=== PATIENT | male | born 1955 | race Hispanic/Latino ===

== ENCOUNTER 2018-02-20 01:32 | Emergency (ER) | payer BC ==
[~2018-02-20] VITALS: Ht 180.3 cm; Wt 104.3 kg
[2018-02-20] MEDS ORDERED: SODIUM CHLORIDE 0.9% 1000ML 1,000 ML IV STA (02:53)
[2018-02-20] MEDS ORDERED: PANTOPRAZOLE 40 MG 10ML VIAL IV STA (02:53)
[2018-02-20] MEDS ORDERED: MORPHINE SULFATE 2 MG/ML SYR IV STA (02:53)
[2018-02-20] MEDS ORDERED: ONDANSETRON HCL INJ 2 MG/ML VIAL IV STA (02:53)
[2018-02-20 03:04] LABS: BASOPHILS # (AUTO) 0.1 (0.0-0.1); BASOPHILS % 0.6 % (0.0-1.0); EOSINOPHILS # (AUTO) 0.2 (0.0-0.4); EOSINOPHILS % 2.6 % (0.0-6.0); HEMATOCRIT 47.9 % (38.2-49.6); HEMOGLOBIN 16.2 g/dL (14.0-18.0); LYMPHOCYTES # (AUTO) 3.6 (1.0-3.2); MEAN CORPUSCULAR HEMOGLOBIN 31.5 pg (28-32); MEAN CORPUSCULAR HGB CONC 33.8 g/dL (31-35); MONOCYTES # (AUTO) 0.4 (0.2-0.8); MONOCYTES % 4.7 % (4.4-11.3); NEUTROPHILS # (AUTO) 5.1 (2.1-6.9); NEUTROPHILS % 53.8 % (38.7-80.0); PLATELET COUNT 324 x10e3/uL (140-360); RED BLOOD COUNT 5.15 x10e6/uL (4.3-5.7); RED CELL DISTRIBUTION WIDTH 12.7 % (11.7-14.4)
[2018-02-20 03:08] LABS: CLARITY,URINE CLEAR (CLEAR); COLOR,URINE YELLOW (YELLOW); INR 0.99; LEUKOCYTE ESTERASE ,URINE NEGATIVE (NEGATIVE); NITRITE,URINE NEGATIVE (NEGATIVE); PROTHROMBIN TIME 12.3 seconds (11.9-14.5)
[2018-02-20 03:09] LABS: BILIRUBIN,URINE NEGATIVE (NEGATIVE); KETONES,URINE NEGATIVE (NEGATIVE); PARTIAL THROMBOPLASTIN TIME 32.2 seconds (23.8-35.5); PROTEIN,URINE DIPSTICK TRACE (NEGATIVE); URINE UROBILINOGEN 0.2 mg/dL (0.2 - 1)
[2018-02-20 03:15] LABS: BACTERIA,URINE RARE /HPF; EPITHELIAL CELLS,URINE RARE /LPF; HYALINE CASTS 0-1 (0-1); MUCUS,URINE MANY (RARE); WBC,URINE (MAN) 0-5 /HPF (0-5)
[2018-02-20 03:17] LABS: ALANINE AMINOTRANSFERASE 58 IU/L (0-55); ALBUMIN/GLOBULIN RATIO 1.1 (0.8-2.0); ALKALINE PHOSPHATASE 114 IU/L (40-150); AMYLASE 45 U/L (25-125); ANION GAP 14.5 mmol/L (8-16); BLOOD UREA NITROGEN 18 mg/dL (7-26); BUN/CREATININE RATIO 19 (6-25); CARBON DIOXIDE 21 mmol/L (22-29); CHLORIDE 106 mmol/L (98-107); CREATINE KINASE 72 IU/L (30-200); CREATININE, SERUM 0.97 mg/dL (0.72-1.25); EST GLOMERULAR FILTRATION RATE > 60 ML/MIN (60-); GLUCOSE 153 mg/dL (74-118); LIPASE 26 U/L (8-78); MAGNESIUM 2.3 MG/DL (1.3-2.1); POTASSIUM 3.5 mmol/L (3.5-5.1); SODIUM 138 mmol/L (136-145)
--- NOTE | 2018-02-20 04:35 | Diagnostic Imaging Report ---
EXAM: CT ABDOMEN/PELVIS W DATE: 02/20/2018 2:53 AM INDICATION: \S\AISHWARYA ABD PAIN, N/V/D \S\ epigastric pain COMPARISON: None TECHNIQUE: The abdomen and pelvis were scanned using a multidetector helical scanner. Coronal and sagittal reformations were obtained. Routine protocol performed. IV Contrast: 100 ml Isovue 370 FINDINGS: LOWER THORAX: No consolidations LIVER/BILIARY: No masses. No ductal dilatation. GALLBLADDER: Unremarkable SPLEEN: Unremarkable PANCREAS: Unremarkable ADRENALS: No nodules KIDNEYS: Symmetric perfusion. No enhancing masses. No hydronephrosis. GI TRACT: No evidence of obstruction. Appendix is not visualized. Diverticulosis with slight thickening of the sigmoid colon which may be related to underdistention or chronic diverticular fibrosis. No acute inflammation. VESSELS: Mild atherosclerotic changes. PERITONEUM/RETROPERITONEUM: No free air or fluid LYMPH NODES: No lymphadenopathy REPRODUCTIVE ORGANS/BLADDER: Unremarkable SOFT TISSUES: Unremarkable BONES: No suspicious bone lesions. IMPRESSION: No acute abnormality. Diverticulosis without evidence of acute diverticulitis. Signed by: Dr Sera Reynolds MD on 02/20/2018 4:32 AM
[2018-02-20] MEDS ORDERED: SODIUM CHLORIDE 0.9% 50ML 50 ML ONE (05:07)
[2018-02-20] MEDS ORDERED: IOPAMIDOL 370 MG/ML 200 ML INFUS..BTL INJ ONE (05:07)
[2018-02-20 05:38] VITALS: BP 130/84
== END 2018-02-20 06:14 | disposition home or self-care (01) ==
LOC: ER 01:32
DX: R11.2 Nausea with vomiting, unspecified (principal); R19.7 Diarrhea, unspecified; R10.13 Epigastric pain
CPT/HCPCS: 36415; 74177; 80053; 81001; 82150; 82550; 82553; 83690; 83735; 84484; 85025; 85610; 85730; 96360; 96374; 96375; 96376; 99284; J2270; J2405; J7030; Q9967

== ENCOUNTER 2018-03-18 16:13 | Emergency (ER) | payer BC ==
[~2018-03-18] VITALS: Ht 180.3 cm; Wt 104.3 kg
[~2018-03-18 16:13] MED LIST changes: -BELLADONNA/OPIUM 60 MG SUPP PR ONE; -CEFTRIAXONE SOD 1 GM VIAL ONE; -DEXAMETHASONE SOD PHOS INJ 4 MG/ML VIAL ONE; -FENTANYL CITRATE/PF 100MCG/2 ML INJ ONE; -FUROSEMIDE INJ 10 MG/ML 4 ML VIAL ONE; -GENTAMICIN 80MG/NS 100 ML 200 ML IV ONE; -HYDROMORPHONE 1MG/1ML INJ ONE; -IOPAMIDOL 610MG/1ML 300 MG/ML VIAL IV ONE; -LIDOCAINE HCL 2% LOCAL INJ 5 ML SDV VIAL INJ ONE; -MIDAZOLAM HCL 2 MG/2 ML VIAL ONE; -ONDANSETRON HCL INJ 2 MG/ML VIAL ONE; -PHENAZOPYRIDINE HCL 100 MG TAB PO ONE; -PROPOFOL IV EMULSION 10 MG/ML 20 ML VIAL ONE; -SEVOFLURANE INHAL SOLN 250 ML PEN BTL ONE
[2018-03-18 17:23] VITALS: BP 130/73
== END 2018-03-18 17:45 | disposition home or self-care (01) ==
LOC: ER 16:13
DX: R31.0 Gross hematuria (principal); R33.9 Retention of urine, unspecified
CPT/HCPCS: 99284

== ENCOUNTER → 2018-03-18 | Day surgery (SDC) | payer BC ==
--- NOTE | 2018-03-17 16:14 | Diagnostic Imaging Report ---
PROCEDURE: X-RAY CHEST, TWO VIEWS COMPARISON: None. INDICATIONS: PRE-OP FINDINGS: LUNGS: Clear. Pulmonary vasculature is normal PLEURA: No effusions or pneumothorax. HEART \T\ MEDIASTINUM: The heart is normal in size. No hilar lymphadenopathy. BONES \T\ SOFT TISSUES: No focal osseous lesions. Soft tissues are unremarkable. CONCLUSION: No acute cardiopulmonary process. Dictated by: Jani Mccallum M.D. on 03/17/2018 at 16:15 Electronically approved by: Jani Mccallum M.D. on 03/17/2018 at 16:15
[~2018-03-18] MED LIST: BELLADONNA/OPIUM 60 MG SUPP PR ONE; CEFTRIAXONE SOD 1 GM VIAL ONE; DEXAMETHASONE SOD PHOS INJ 4 MG/ML VIAL ONE; DOXAZOSIN MESYLA4 MG PO; FENTANYL CITRATE/PF 100MCG/2 ML INJ ONE; FUROSEMIDE INJ 10 MG/ML 4 ML VIAL ONE; GENTAMICIN 80MG/NS 100 ML 200 ML IV ONE; HYDROMORPHONE 1MG/1ML INJ ONE; IOPAMIDOL 610MG/1ML 300 MG/ML VIAL IV ONE; LIDOCAINE HCL 2% LOCAL INJ 5 ML SDV VIAL INJ ONE; MIDAZOLAM HCL 2 MG/2 ML VIAL ONE; MULTIVITAMINS1 EAC7 PO; ONDANSETRON HCL INJ 2 MG/ML VIAL ONE; PHENAZOPYRIDINE HCL 100 MG TAB PO ONE; PROPOFOL IV EMULSION 10 MG/ML 20 ML VIAL ONE; SEVOFLURANE INHAL SOLN 250 ML PEN BTL ONE; [UNRECOGNIZED DRUG - OTHER] PO
--- OUTSIDE RECORDS SUMMARY | 2018-03-18 06:47 | XMS REPORT | Continuity of Care Document ---
Author Author [facility] Organization [facility] Address [address] [place] [address] Phone Unavailable Care Team Providers Care Pulmonologist Name Role Phone NONSTAFF PCP Unavailable Insurance Providers Guarantor Tod Luke Address [address] [place] [address] [facility] Policy Number [id number] Subscriber's Name Tod Altamirano Relationship 18 Self / Same As Patient Group Number [id number] Group Name DANIELA ROJAS IVETT Effective Date 17 Advance Directives Directive Response Recorded Date/Time Does the patient have an advance directive? No 12/01/10 9:21am If yes, is advance directive on file with [facility]? No 12/01/10 9:21am If not on file with [facility] will patient provide a copy? No 04/10/11 5:24am Do you have a Directive to Physician? No 02/20/18 1:30am Do you have a Medical Power of Gaming Investigator? No 02/20/18 1:30am Do you have an out of hospital Do Not Resuscitate Order? No 02/20/18 1:30am Do you have any special needs we should be aware of? No 02/20/18 1:30am Do you have a support person here with you today? Yes 02/20/18 1:30am Did patient receive Notice of Privacy Practices? Yes 02/20/18 1:31am Did patient receive patient rights and responsibilities? Yes 02/20/18 1:31am Problems No problem information available. Medications No medication information available. Social History Smoking Status Start Date Stop Date Never Smoker Hospital Discharge Instructions No hospital discharge instruction information available. Plan of Care Discharge Date 02/20/18 6:14am Disposition HOME, SELF-CARE Condition at Discharge Stable Instructions/Education Provided Abdominal Pain - Adult Forms Provided Work/School Excuse Prescriptions See Medication Section Referrals NO,FAMILY Order Date: Call for an appointment Additional Instructions/Education DC HOME FOLLOW UP WITH PCP TAKE MEDS DIRECTED RETURN TO THE ER WITH ANY EMERGENT CONDITONS Functional Status No functional status information available. Allergies, Adverse Reactions, Alerts Allergen Type Severity Reaction Status Last Updated No Known Drug Allergies Allergy Unknown Active 02/20/18 Immunizations No immunization information available. Vital Signs Acute Vital Signs Vital Response Date/Time Temperature (Fahrenheit) 98.6 degrees F (97.6 - 99.5) 02/20/2018 5:38am Pulse Pulse Rate (adult) 57 bpm (60 - 90) 02/20/2018 5:38am Respiratory Rate 18 bpm (12 - 24) 02/20/2018 5:38am Blood Pressure 130/84 mm Hg 02/20/2018 5:38am Height 5 ft 11 in 02/20/2018 1:52am Weight 230 lb 02/20/2018 1:52am Body Mass Index 32.1 kg/m^2 02/20/2018 1:52am Results Laboratory Results Test Name Result Units Flags Reference Collection Date/Time Result Date/ Time Comments White Blood Count 9.38 x10e3/uL 4.8-10.8 02/20/2018 2:44am 02/20/2018 3 :08am Red Blood Count 5.15 x10e6/uL 4.3-5.7 02/20/2018 2:44am 02/20/2018 3: 08am Hemoglobin 16.2 g/dL 14.0-18.0 02/20/2018 2:44am 02/20/2018 3:08am Hematocrit 47.9 % 38.2-49.6 02/20/2018 2:44am 02/20/2018 3:08am Mean Corpuscular Volume 93.0 fL 81-99 02/20/2018 2:44am 02/20/2018 3: 08am Mean Corpuscular Hemoglobin 31.5 pg 28-32 02/20/2018 2:02/20/2018 3:08am Mean Corpuscular Hemoglobin Concent 33.8 g/dL 31-35 02/20/2018 2:02/20/2018 3:08am Red Cell Distribution Width 12.7 % 11.7-14.4 02/20/2018 2:2017 3:08am Platelet Count 324 x10e3/uL 140-360 02/20/2018 2:02/20/2018 3: 08am Neutrophils (%) (Auto) 53.8 % 38.7-80.0 02/20/2018 2:02/20/2018 3: 08am Lymphocytes (%) (Auto) 38.0 % 18.0-39.1 02/20/2018 2:02/20/2018 3: 08am Monocytes (%) (Auto) 4.7 % 4.4-11.3 02/20/2018 2:02/20/2018 3: 08am Eosinophils (%) (Auto) 2.6 % 0.0-6.0 02/20/2018 2:02/20/2018 3: 08am Basophils (%) (Auto) 0.6 % 0.0-1.0 02/20/2018 2:02/20/2018 3:08am IM GRANULOCYTES % 0.3 % 0.0-1.0 02/20/2018 2:02/20/2018 3:08am Neutrophils # (Auto) 5.1 2.1-6.9 02/20/2018 2:02/20/2018 3:08am Lymphocytes # (Auto) 3.6 H 1.0-3.2 02/20/2018 2:02/20/2018 3: 08am Monocytes # (Auto) 0.4 0.2-0.8 02/20/2018 2:02/20/2018 3:08am Eosinophils # (Auto) 0.2 0.0-0.4 02/20/2018 2:02/20/2018 3:08am Basophils # (Auto) 0.1 0.0-0.1 02/20/2018 2:4402/20/2018 3:08am Absolute Immature Granulocyte (auto 0.03 x10e3/uL 0-0.1 02/20/2018 2: 44am 02/20/2018 3:08am Prothrombin Time 12.3 seconds 11.9-14.5 02/20/2018 2:44am 02/20/2018 3: 10am Prothromb Time International Ratio 0.99 02/20/2018 2:44am 2017 3:10am Oral Anticoagulant Therapy INR Values: 1. Low Intensity Therapy 1.5 - 2.0 2. Moderate Intensity Therapy 2.0 - 3.0 3. High Intensity Therapy(1) 2.5 - 3.5 4. High Intensity Therapy(2) 3.0 - 4.0 5. Panic Value INR > 5.0 Activated Partial Thromboplast Time 32.2 seconds 23.8-35.5 02/20/2018 2: 44am 02/20/2018 3:10am Urine Color YELLOW YELLOW 02/20/2018 2:44am 02/20/2018 3:09am Urine Clarity CLEAR CLEAR 02/20/2018 2:44am 02/20/2018 3:09am Urine Specific [place] 1.020 1.010-1.025 02/20/2018 2:44am 2017 3:09am Urine pH 5 5 - 7 02/20/2018 2:44am 02/20/2018 3:09am Urine Leukocyte Esterase NEGATIVE NEGATIVE 02/20/2018 2:44am 2017 3:09am Urine Nitrite NEGATIVE NEGATIVE 02/20/2018 2:44am 02/20/2018 3:09am Urine Protein TRACE H NEGATIVE 02/20/2018 2:44am 02/20/2018 3:09am Urine Glucose (UA) NEGATIVE NEGATIVE 02/20/2018 2:44am 02/20/2018 3: 09am Urine Ketones NEGATIVE NEGATIVE 02/20/2018 2:44am 02/20/2018 3:09am Urine Urobilinogen 0.2 mg/dL 0.2 - 1 02/20/2018 2:44am 02/20/2018 3: 09am Urine Bilirubin NEGATIVE NEGATIVE 02/20/2018 2:44am 02/20/2018 3: 09am Urine Blood TRACE H NEGATIVE 02/20/2018 2:44am 02/20/2018 3:09am Urine WBC 0-5 /HPF 0-5 02/20/2018 2:44am 02/20/2018 3:16am Urine RBC 6-10 /HPF H 0-5 02/20/2018 2:44am 02/20/2018 3:16am Urine Bacteria RARE /HPF NONE 02/20/2018 2:44am 02/20/2018 3:16am Urine Epithelial Cells RARE /LPF NONE 02/20/2018 2:44am 02/20/2018 3: 16am Urine Hyaline Casts 0-1 0-1 02/20/2018 2:44am 02/20/2018 3:16am Urine Mucus MANY H RARE 02/20/2018 2:44am 02/20/2018 3:16am Sodium Level 138 mmol/L 136-145 02/20/2018 2:44am 02/20/2018 3:20am Potassium Level 3.5 mmol/L 3.5-5.1 02/20/2018 2:44am 02/20/2018 3:20am Chloride Level 106 mmol/L 98-107 02/20/2018 2:44am 02/20/2018 3:20am Carbon Dioxide Level 21 mmol/L L 22-29 02/20/2018 2:44am 02/20/2018 3: 20am Anion Gap 14.5 mmol/L 8-16 02/20/2018 2:44am 02/20/2018 3:20am Blood Urea Nitrogen 18 mg/dL 7-26 02/20/2018 2:44am 02/20/2018 3:20am Creatinine 0.97 mg/dL 0.72-1.25 02/20/2018 2:44am 02/20/2018 3:20am BUN/Creatinine Ratio 19 6-25 02/20/2018 2:44am 02/20/2018 3:20am Estimat Glomerular Filtration Rate > 60 ML/MIN 60- 02/20/2018 2:44am 3:20am Ranges were taken from the National Kidney Disease Education Program and the National Kidney Foundation literature. Reference ranges: 60 or greater: Normal 16-59 (for 3 consecutive months): Chronic kidney disease 15 or less: Kidney failure Glucose Level 153 mg/dL H 74-118 02/20/2018 2:44am 02/20/2018 3:20am Calcium Level 9.0 mg/dL 8.4-10.2 02/20/2018 2:44am 02/20/2018 3:20am Magnesium Level 2.3 MG/DL H 1.3-2.1 02/20/2018 2:44am 02/20/2018 3:20am Total Bilirubin 0.5 mg/dL 0.2-1.2 02/20/2018 2:44am 02/20/2018 3:20am Aspartate Amino Transf (AST/SGOT) 44 IU/L H 5-34 02/20/2018 2:44am 02/20 3:20am Alanine Aminotransferase (ALT/SGPT) 58 IU/L H 0-55 02/20/2018 2:44am 11/2017 3:20am Total Protein 7.5 g/dL 6.5-8.1 02/20/2018 2:44am 02/20/2018 3:20am Albumin 4.0 g/dL 3.5-5.0 02/20/2018 2:44am 02/20/2018 3:20am Globulin 3.5 g/dL 2.3-3.5 02/20/2018 2:44am 02/20/2018 3:20am Albumin/Globulin Ratio 1.1 0.8-2.0 02/20/2018 2:44am 02/20/2018 3: 20am Alkaline Phosphatase 114 IU/L 40-150 02/20/2018 2:44am 02/20/2018 3: 20am Creatine Kinase 72 IU/L 30-200 02/20/2018 2:44am 02/20/2018 3:20am Creatine Kinase MB 0.60 ng/mL 0-5.0 02/20/2018 2:44am 02/20/2018 3: 32am Troponin I < 0.001 ng/mL 0-0.300 02/20/2018 2:44am 02/20/2018 3:32am Amylase Level 45 U/L 25-125 02/20/2018 2:44am 02/20/2018 3:20am Lipase 26 U/L 8-78 02/20/2018 2:44am 02/20/2018 3:20am Procedures Procedure Status Date Provider(s) Computed tomography of abdomen and pelvis with contrast Active 02/20/18 VICENTE NIEVES MD Encounters Encounter Location Arrival/Admit Date Discharge/Depart Date Attending Provider Departed Emergency Room [facility] 02/20/18 1:32am 6:14am VICENTE NIEVES MD
--- OUTSIDE RECORDS SUMMARY | 2018-03-18 06:47 | XMS REPORT ---
Author Author [facility] Address Unknown Phone Unavailable Care Team Providers Care Sand Mill Grinder Name Role Phone SEEMA APONTE Unavailable Unavailable VICENTE NIEVES Unavailable Unavailable Problems This patient has no known problems. Allergies, Adverse Reactions, Alerts This patient has no known allergies or adverse reactions. Medications This patient has no known medications. Results Test Description Test Time Test Comments Text Results Atomic Results Result Comments CHEST 2 VIEWS [place] [address] Patient Name: YASIR GOLDMAN MR #: [id number] : 1955 Age/Sex: 62/M Req #: [id number] [facility] Physician: Ordered by: SEEMA APONTE MD Report #: [id number] Location: OR Room/Bed: Procedure: [id number] DX/ CHEST 2 VIEWS Exam Date: 03/17/18 Exam Time: 1550 REPORT STATUS: Signed PROCEDURE: X-RAY CHEST, TWO VIEWS COMPARISON: None. INDICATIONS: PRE-OP FINDINGS: LUNGS: Clear. Pulmonary vasculature is normal PLEURA: No effusions or pneumothorax. HEART T MEDIASTINUM: The heart is normal in size. No hilar lymphadenopathy. BONES T SOFT TISSUES: No focal osseous lesions. Soft tissues are unremarkable. CONCLUSION: No acute cardiopulmonary process. Dictated by: Gabriella Mccallum M.D. on 03/17/2018 at 16:15 Electronically approved by: Gabriella Mccallum M.D. on 03/17/2018 at 16:15 Dictated By: GABRIELLA MCCALLUM MD 14 Transcribed By: ENRIQUETA on 03/17/181614 COPY TO: SEEMA APONTE MD CT ABDOMEN/PELVIS W [place] [address] Patient Name: YASIR ZELAYA MR #: [id number] : 1955 Age/Sex: 62/M Req #: [id number] Adm Physician: Ordered by: VICENTE NIEVES MD Report #: [id number] Location: ER Room/Bed: Procedure: [id number] CT/CT ABDOMEN/PELVIS W Exam Date: 02/20/18 Exam Time: 338 REPORT STATUS: Signed EXAM: CT ABDOMEN/PELVIS W DATE : 02/20/2018 2:53 AM INDICATION: S AISHWARYA ABD PAIN, N/V/D S epigastric pain COMPARISON: None TECHNIQUE: The abdomen and pelvis were scanned using a multidetector helical scanner. Coronal and sagittal reformations were obtained. Routine protocol performed. IV Contrast: 100 ml Isovue 370 FINDINGS: LOWER THORAX: No consolidations LIVER/BILIARY: No masses. No ductal dilatation. GALLBLADDER: Unremarkable SPLEEN: Unremarkable PANCREAS: Unremarkable ADRENALS: No nodules KIDNEYS: Symmetric perfusion. No enhancing masses. No hydronephrosis. GI TRACT: No evidence of obstruction. Appendix is not visualized. Diverticulosis with slight thickening of the sigmoid colon which may be related to underdistention or chronic diverticular fibrosis. No acute inflammation. VESSELS: Mild atherosclerotic changes. PERITONEUM/RETROPERITONEUM: No free air or fluid LYMPH NODES: No lymphadenopathy REPRODUCTIVE ORGANS/BLADDER: Unremarkable SOFT TISSUES: Unremarkable BONES: No suspicious bone lesions. IMPRESSION: No acute abnormality. Diverticulosis without evidence of acute diverticulitis. Signed by: Dr Anant Reynolds MD on 02/20/2018 4:32 AM Dictated By: ANANT REYNOLDS MD 1 Transcribed By: DEREJE on 02/20/18431 COPY TO: VICENTE NIEVES MD
--- NOTE | 2018-04-25 01:37 | Operative Report ---
DATE OF PROCEDURE: March 18, 2018 PREOPERATIVE DIAGNOSES: 1. Obstructive BPH. 2. History of urolithiasis. POSTOPERATIVE DIAGNOSES: 1. Obstructive BPH. 2. History of urolithiasis. OPERATIVE PROCEDURE PERFORMED: 1. Cystourethroscopy with bilateral ureteral catheterization and retrograde ureteropyelography (separate procedure performed for the stone history). 2. Interpretation of retrograde ureteropyelography. 3. Supervision of fluoroscopy. No radiologist present. 4. Cystourethroscopy with transurethral implantation of 4 UroLift implants (separate procedure performed for the obstructive BPH). ANESTHESIA: General. COMPLICATIONS: None. CLINICAL SUMMARY: Tod Luke is a 62-year-old man with obstructive BPH. He has failed medications and is discontent with his voiding. He desired to proceed with UroLift implantation. He is aware of the risks of bleeding, infection, injury to adjacent structures, need for additional procedures and elected to proceed. OPERATIVE PROCEDURE IN DETAIL: Informed consent was verified. Tod Luke was properly identified and taken to operating room, placed on the cystoscopy table in supine position. Anesthesia was uneventfully begun. The patient was then carefully and gently repositioned in the dorsal lithotomy position with all pressure points well padded. His genitalia were prepared and draped in usual sterile fashion. The 22.5-Martiniquais cystourethroscope sheath with visual obturator in place was atraumatically inserted in the patient's urethra and was guided down the unremarkable urethra past the normal sphincteric region and into the prostate bed. His prostate bed was significant for bilobar prostatic hypertrophy with visual obstruction caused by kissing lateral lobes. There was no median lobe. Panendoscopy of the urinary bladder revealed mild trabeculations, but no tumors, no stones and no diverticula. Normally positioned and configured ureteral orifices were identified. An 8-Martiniquais catheter was used to cannulate each ureter and retrograde ureteral pyelograms were performed. Interpretation of retrograde ureteropyelography: Contrast was instilled in retrograde fashion bilaterally. There were no tumors, no stones and no diverticula. Unobstructed drainage was observed bilaterally fluoroscopically. The patient's bladder was drained. The cystoscope was withdrawn. A 20-Martiniquais cystoscope sheath with a visual obturator in place was atraumatically inserted. Four UroLift implants were then the implanted. One was placed on each side 1.5 cm distal to the bladder neck and in an anterolateral position and one was placed on each side at the level of the verumontanum at the anterolateral position. This resulted in an open continuous channel and the anterior prostate bed. There was oozing from the UroLift implantation sites, therefore, Rincon catheter was placed for tamponade purposes. A belladonna and opium suppository was placed revealing a 40 g prostate that was smooth non-fluctuant without any nodules. The patient was uneventfully reversed from anesthesia and taken to recovery room in stable condition. There were no complications with the procedure. The patient tolerated the procedure well. Plans will be to have the patient remove his Rincon catheter as an outpatient at home and to follow up in approximately 1 month for uroflowmetry and bladder ultrasonography to evaluate his postoperative voiding pattern. Job#: [id number]
== END | disposition home or self-care (01) ==
LOC: OR 06:44
PROVIDERS: ATTEND Urology
DX: N40.1 Benign prostatic hyperplasia with lower urinary tract symptoms (principal); N13.8 Other obstructive and reflux uropathy; N32.89 Other specified disorders of bladder; R00.1 Bradycardia, unspecified; Z01.810 Encounter for preprocedural cardiovascular examination; Z01.818 Encounter for other preprocedural examination; Z87.442 Personal history of urinary calculi
CPT/HCPCS: 52005; C9740; 71046; 74420; 93005; J0696; J1100; J1170; J1580; J1940; J2001; J2250; J2405

== ENCOUNTER 2025-09-04 12:28 | Emergency (ER) | payer BC | END 2025-09-04 15:47 | disposition left against medical advice (07) | LOC: ER 15:27 | DX: R06.6 Hiccough (principal) ==